=== PATIENT | female | born 1960 | race African-American/Black ===

== ENCOUNTER 2018-10-17 11:52 | Observation (INO) ==
[2018-10-17] MEDS ORDERED: SODIUM CHLORIDE 0.9% 1,000 ML IV STA (12:49)
[2018-10-17 13:23] LABS: Basophils % 0.2 % (0.0-0.8); Eosinophils % 0.2 % (0.00-10.9); Hematocrit 31.2 VOL% (35.7-47.0); Hemoglobin 10.3 GM/DL (12.0-16.0); Immature Granulocytes % 0.5 %; Immature Granulocytes Absolute 0.02 #; Lymphocytes # 0.2 10*3/uL (1.4-4.0); Lymphocytes % 4.6 % (21.3-54.2); Mean Corpuscular Volume 70.1 FL (87-102); Monocytes % 8.4 % (1.7-12.7); Neutrophils % 86.1 % (38.7-73.9); Platelet Count 244 T/CUMM (130-400); Red Blood Count 4.45 MC/CUMM (3.8-5.5); Red Cell Distribution Width 17.2 % (9.3-17.3); White Blood Count 4.4 T/CUMM (4-12)
[2018-10-17 13:26] LABS: Apearance,Urine CLOUDY (Clear); Bacteria,Urine Occasional /HPF (Few); Blood, Urine Negative (Negative); Glucose,Urine (UA) 50 mg/dL (Negative); Ketones,Urine 80 mg/dL (Negative); Mucus,Urine Many /LPF (Occasional); Nitrite,Urine Negative (Negative); Protein,Urine 100 MG/DL; RBC,Urine 3 /HPF (0-4); Squamous Epithelial Cell,Urine Occasional /HPF (0-10); Urine Specific Gravity 1.024 (1.001-1.035); WBC,Urine 7 /HPF (0-6)
[2018-10-17 13:27] LABS: Bilirubin,Urine Small mg/dL (Negative); Urine Color Yellow (Yellow)
[2018-10-17 13:45] LABS: Albumin 4.2 G/DL (3.4-5.0); Bilirubin,Total 0.5 MG/DL (0.2-1.0); Calcium 9.8 MG/DL (8.5-10.1); Osmolality,Calculated 260.5 MOS/KG (273-304); Total Protein 8.3 G/DL (6.4-8.3)
[2018-10-17 13:50] LABS: Band Neutrophils 1 % (0-10); Lymphocytes 3 % (20-55); Segmented Neutrophils 87 % (50-85); Total Cells Counted 100
[2018-10-17 13:51] LABS: Hypochromasia 1+; Target Cells Few
[2018-10-17 13:52] LABS: Platelet Estimate Adequate
[2018-10-17] MEDS ORDERED: ONDANSETRON 4 MG/2 ML VIAL IV STA (13:52)
[2018-10-17] MEDS ORDERED: DOCUSATE SODIUM 100 MG CAPSULE PO PRN (15:45)
[2018-10-17] MEDS ORDERED: ACETAMINOPHEN 325 MG TABLET PO PRN (15:45)
[2018-10-17] MEDS ORDERED: PROMETHAZINE 25 MG TABLET PO PRN (15:45)
[2018-10-17] MEDS ORDERED: ONDANSETRON 4 MG/2 ML VIAL IV PRN (15:45)
[2018-10-17] MEDS: SODIUM CHLORIDE 0.9% 1,000 ML IV SCH (20:22)
[2018-10-17] MEDS: ENOXAPARIN 40 MG/0.4 ML SYRINGE SUBCUT SCH (20:23)
[2018-10-17] MEDS: METOPROLOL SUCCINATE XL 50 MG TABLET PO SCH (20:23)
[2018-10-18] MEDS: SODIUM CHLORIDE 0.9% 1,000 ML IV SCH ×2 (04:45→19:55)
[2018-10-18 06:00] LABS: Basophils % 0.6 % (0.0-0.8); Eosinophils % 1.2 % (0.00-10.9); Hemoglobin 8.5 GM/DL (12.0-16.0); Immature Granulocytes % 0.3 %; Immature Granulocytes Absolute 0.01 #; Lymphocytes # 0.5 10*3/uL (1.4-4.0); Lymphocytes % 14.2 % (21.3-54.2); Mean Corpuscular Volume 70.6 FL (87-102); Mean Platelet Volume 9.5 FL (9.6-12.0); Monocytes % 12.1 % (1.7-12.7); Neutrophils % 71.6 % (38.7-73.9); Platelet Count 206 T/CUMM (130-400); Red Blood Count 3.54 MC/CUMM (3.8-5.5); Red Cell Distribution Width 17.4 % (9.3-17.3); White Blood Count 3.3 T/CUMM (4-12)
[2018-10-18] MEDS: LEVOTHYROXINE 100 MCG TABLET PO SCH (06:05)
[2018-10-18 06:21] LABS: Calcium 8.4 MG/DL (8.5-10.1); Osmolality,Calculated 269.8 MOS/KG (273-304)
[2018-10-18] MEDS ORDERED: POTASSIUM CHLORIDE 20 MEQ TABLET PO PRN (10:07)
[2018-10-18] MEDS ORDERED: POTASSIUM CHLORIDE RIDER 10 MEQ in PREMIX 1 EACH IV PRN (11:17)
[2018-10-18] MEDS: POTASSIUM CHLORIDE RIDER 20 MEQ in PREMIX 1 EACH IV PRN ×2 (11:37→13:54)
[2018-10-18] MEDS: ENOXAPARIN 40 MG/0.4 ML SYRINGE SUBCUT SCH (21:52)
[2018-10-18] MEDS: METOPROLOL SUCCINATE XL 50 MG TABLET PO SCH (21:52)
[2018-10-19] MEDS: SODIUM CHLORIDE 0.9% 1,000 ML IV SCH (05:20)
[2018-10-19 05:43] LABS: Basophils % 0.4 % (0.0-0.8); Eosinophils % 1.3 % (0.00-10.9); Hematocrit 25.5 VOL% (35.7-47.0); Hemoglobin 8.1 GM/DL (12.0-16.0); Immature Granulocytes % 0.4 %; Immature Granulocytes Absolute 0.01 #; Lymphocytes # 0.4 10*3/uL (1.4-4.0); Lymphocytes % 19.6 % (21.3-54.2); Mean Corpuscular HGB Conc 31.8 GM/DL (32-36); Mean Corpuscular Volume 73.7 FL (87-102); Mean Platelet Volume 10.1 FL (9.6-12.0); Monocytes % 13.8 % (1.7-12.7); Neutrophils % 64.5 % (38.7-73.9); Platelet Count 188 T/CUMM (130-400); Red Blood Count 3.46 MC/CUMM (3.8-5.5); Red Cell Distribution Width 18.3 % (9.3-17.3); White Blood Count 2.3 T/CUMM (4-12)
[2018-10-19 06:01] LABS: Calcium 8.2 MG/DL (8.5-10.1); Osmolality,Calculated 272.5 MOS/KG (273-304)
[2018-10-19] MEDS: LEVOTHYROXINE 100 MCG TABLET PO SCH (06:30)
[2018-10-19 09:14] VITALS: BP 176/103
[2018-10-19] MEDS ORDERED: amLODIPine 10 MG TABLET PO SCH (10:00)
[2018-10-19] MEDS ORDERED: HEPARIN LOCK FLUSH 500 UNIT/5 ML SYRINGE IV ONE (13:16)
== END 2018-10-19 13:40 | disposition home or self-care (01) ==
LOC: N.ED 11:52 → N.EDINP 11:52 → N.4E 17:55
PROVIDERS: ADMIT Internal Medicine; ATTEND Internal Medicine

== ENCOUNTER 2018-11-03 19:32 | Inpatient (IN) ==
[2018-11-03 22:33] LABS: Basophils % 0.2 % (0.0-0.8); Hematocrit 34.7 VOL% (35.7-47.0); Hemoglobin 11.7 GM/DL (12.0-16.0); Immature Granulocytes % 0.6 %; Immature Granulocytes Absolute 0.03 #; Lymphocytes # 0.4 10*3/uL (1.4-4.0); Lymphocytes % 7.9 % (21.3-54.2); Mean Corpuscular HGB Conc 33.7 GM/DL (32-36); Mean Corpuscular Volume 71.4 FL (87-102); Mean Platelet Volume 10.6 FL (9.6-12.0); Monocytes % 6.3 % (1.7-12.7); NRBC # 0.02 10*3/uL; Platelet Count 316 T/CUMM (130-400); Red Blood Count 4.86 MC/CUMM (3.8-5.5); White Blood Count 5.1 T/CUMM (4-12)
[2018-11-03 22:56] LABS: Alanine Aminotransferase 26 U/L (13-56); Albumin 4.3 G/DL (3.4-5.0); Alkaline Phosphatase 66 U/L (45-117); Aspartate Amino Transferase 32 U/L (0-37); Blood Urea Nitrogen 31 MG/DL (7-18); Calcium 10.1 MG/DL (8.5-10.1); Estimated Glom Filtration Rate 36 ML/MIN; Glucose 118 MG/DL (74-106); Total Protein 8.5 G/DL (6.4-8.3)
[2018-11-03 23:00] LABS: Troponin I 0.217 NG/ML (0.00-0.045)
[2018-11-03] MEDS ORDERED: SODIUM CHLORIDE 0.9% 2,000 ML IV STA (23:06)
[2018-11-04] MEDS ORDERED: SODIUM CHLORIDE 0.9% 1,000 ML IV ONE (00:29)
[2018-11-04] MEDS ORDERED: hydrALAZINE 20 MG/1 ML VIAL ONE (00:40)
[2018-11-04] MEDS ORDERED: hydrALAZINE 20 MG/1 ML VIAL IV STA (00:50)
[2018-11-04] MEDS ORDERED: POTASSIUM CHLORIDE RIDER 20 MEQ in PREMIX 1 EACH IV PRN (00:59)
[2018-11-04] MEDS ORDERED: ONDANSETRON 4 MG/2 ML VIAL IV PRN (01:00)
[2018-11-04] MEDS ORDERED: [UNRECOGNIZED DRUG - OTHER] IV PRN (01:15)
[2018-11-04 01:23] LABS: Albumin 3.9 G/DL (3.4-5.0); Bilirubin,Total 0.9 MG/DL (0.2-1.0); Calcium 9.2 MG/DL (8.5-10.1); Osmolality,Calculated 284.4 MOS/KG (273-304); Total Protein 7.3 G/DL (6.4-8.3)
[2018-11-04] MEDS: SODIUM CHLORIDE 0.9% 1,000 ML IV SCH ×3 (04:00→20:33)
[2018-11-04] MEDS: ENOXAPARIN 40 MG/0.4 ML SYRINGE SUBCUT SCH (04:32)
[2018-11-04] MEDS: POTASSIUM CHLORIDE RIDER 10 MEQ in PREMIX 1 EACH IV PRN ×5 (04:33→08:51)
[2018-11-04] MEDS: LEVOTHYROXINE 100 MCG TABLET PO SCH (05:35)
[2018-11-04 06:14] LABS: Basophils % 0.2 % (0.0-0.8); Hematocrit 35.4 VOL% (35.7-47.0); Hemoglobin 11.5 GM/DL (12.0-16.0); Immature Granulocytes % 0.6 %; Immature Granulocytes Absolute 0.04 #; Lymphocytes # 0.5 10*3/uL (1.4-4.0); Lymphocytes % 7.3 % (21.3-54.2); Mean Corpuscular HGB Conc 32.5 GM/DL (32-36); Mean Corpuscular Volume 72.8 FL (87-102); Monocytes % 7.9 % (1.7-12.7); Platelet Count 259 T/CUMM (130-400); Red Blood Count 4.86 MC/CUMM (3.8-5.5); White Blood Count 6.6 T/CUMM (4-12)
[2018-11-04 06:53] LABS: Platelet Estimate Normal
[2018-11-04 06:54] LABS: Ovalocytes 1+
[2018-11-04 06:55] LABS: Anisocytosis 2+; Burr Cells 1+; Poikilocytosis 2+
[2018-11-04] MEDS ORDERED: amLODIPine 10 MG TABLET PO SCH (09:00)
[2018-11-04] MEDS ORDERED: VANCOMYCIN INJ 1,000 MG in SODIUM CHLORIDE 0.9% 250 ML IV ONE (09:16)
[2018-11-04 11:40] LABS: Barbiturates Screen,Urine Negative (Negative); Benzodiazepines Screen,Urine Negative (Negative); Cannabinoid Screen,Urine Negative (Negative); Opiate Screen,Urine Negative (Negative); Phencyclidine Screen,Urine Negative (Negative)
[2018-11-04 11:41] LABS: Apearance,Urine CLEAR (Clear); Bilirubin,Urine Negative (Negative); Blood, Urine Negative (Negative); Glucose,Urine (UA) Negative (Negative); Ketones,Urine 20 mg/dL (Negative); Mucus,Urine Occasional /LPF (Occasional); Nitrite,Urine Negative (Negative); Protein,Urine Negative; RBC,Urine 1 /HPF (0-4); Urine Color Yellow (Yellow); Urine Specific Gravity 1.011 (1.001-1.035); Urine Urobilinogen < 2.0 EU/DL (0.2-1.0)
[2018-11-04] MEDS ORDERED: POTASSIUM CHLORIDE 20 MEQ/15 ML UDCUP PO ONE (12:12)
[2018-11-04] MEDS: MEROPENEM 500 MG in SODIUM CHLORIDE 0.9% 100 ML IV SCH ×2 (13:27→20:31)
[2018-11-04] MEDS: diphenhydrAMINE CAP 50 MG CAPSULE PO SCH ×3 (13:27→23:56)
[2018-11-04] MEDS: POTASSIUM CHLORIDE RIDER 10 MEQ in PREMIX 1 EACH IV SCH (13:33)
[2018-11-04] MEDS ORDERED: amLODIPine 5 MG TABLET PO SCH (15:56)
[2018-11-04] MEDS: PANTOPRAZOLE 40 MG TABLET PO SCH (16:57)
[2018-11-04] MEDS: METOPROLOL SUCCINATE XL 50 MG TABLET PO SCH (20:30)
[2018-11-05] MEDS: ENOXAPARIN 40 MG/0.4 ML SYRINGE SUBCUT SCH (00:14)
[2018-11-05 03:25] LABS: Basophils % 0.2 % (0.0-0.8); Hemoglobin 11.5 GM/DL (12.0-16.0); Immature Granulocytes % 0.5 %; Immature Granulocytes Absolute 0.02 #; Lymphocytes # 0.5 10*3/uL (1.4-4.0); Lymphocytes % 11.2 % (21.3-54.2); Mean Corpuscular HGB Conc 32.9 GM/DL (32-36); Mean Corpuscular Volume 72.5 FL (87-102); Monocytes % 10.5 % (1.7-12.7); NRBC # 0.03 10*3/uL; Neutrophils % 77.6 % (38.7-73.9); Platelet Count 317 T/CUMM (130-400); Red Blood Count 4.83 MC/CUMM (3.8-5.5); Red Cell Distribution Width 19.1 % (9.3-17.3); White Blood Count 4.2 T/CUMM (4-12)
[2018-11-05 03:51] LABS: Calcium 8.2 MG/DL (8.5-10.1); Osmolality,Calculated 270.1 MOS/KG (273-304)
[2018-11-05] MEDS: SODIUM CHLORIDE 0.9% 1,000 ML IV SCH ×3 (03:52→23:38)
[2018-11-05] MEDS: POTASSIUM CHLORIDE RIDER 10 MEQ in PREMIX 1 EACH IV PRN ×2 (04:46→05:59)
[2018-11-05] MEDS: diphenhydrAMINE CAP 50 MG CAPSULE PO SCH ×3 (05:58→17:33)
[2018-11-05] MEDS: LEVOTHYROXINE 100 MCG TABLET PO SCH (05:58)
[2018-11-05] MEDS ORDERED: hydrALAZINE 20 MG/1 ML VIAL IV PRN (07:44)
[2018-11-05] MEDS: MEROPENEM 500 MG in SODIUM CHLORIDE 0.9% 100 ML IV SCH (08:48)
[2018-11-05] MEDS: amLODIPine 10 MG TABLET PO SCH (08:49)
[2018-11-05] MEDS: PANTOPRAZOLE 40 MG TABLET PO SCH (08:49)
[2018-11-05] MEDS: POTASSIUM CHLORIDE RIDER 20 MEQ in PREMIX 1 EACH IV PRN ×2 (10:09→17:33)
[2018-11-05] MEDS ORDERED: DIAZEPAM 10 MG/2 ML SYRINGE IV ONE (10:36)
[2018-11-05] MEDS ORDERED: DIAZEPAM 10 MG/2 ML SYRINGE ONE (10:39)
[2018-11-05 10:55] LABS: Albumin 3.3 G/DL (3.4-5.0); Calcium 8.3 MG/DL (8.5-10.1); Osmolality,Calculated 264.5 MOS/KG (273-304); Total Protein 7.1 G/DL (6.4-8.3)
[2018-11-05] MEDS: METOPROLOL SUCCINATE XL 50 MG TABLET PO SCH (21:11)
[2018-11-06] MEDS: ENOXAPARIN 40 MG/0.4 ML SYRINGE SUBCUT SCH (00:49)
[2018-11-06] MEDS: POTASSIUM CHLORIDE RIDER 10 MEQ in PREMIX 1 EACH IV PRN ×3 (00:49→04:00)
[2018-11-06] MEDS: diphenhydrAMINE CAP 50 MG CAPSULE PO SCH ×4 (00:49→19:10)
[2018-11-06 05:39] LABS: Basophils % 0.2 % (0.0-0.8); Hematocrit 30.4 VOL% (35.7-47.0); Hemoglobin 10.1 GM/DL (12.0-16.0); Immature Granulocytes % 0.7 %; Immature Granulocytes Absolute 0.04 #; Lymphocytes # 0.7 10*3/uL (1.4-4.0); Lymphocytes % 12.1 % (21.3-54.2); Mean Corpuscular HGB Conc 33.2 GM/DL (32-36); Mean Corpuscular Volume 71.9 FL (87-102); Mean Platelet Volume 10.2 FL (9.6-12.0); Monocytes % 7.2 % (1.7-12.7); NRBC # 0.06 10*3/uL; Neutrophils % 79.8 % (38.7-73.9); Platelet Count 300 T/CUMM (130-400); Red Blood Count 4.23 MC/CUMM (3.8-5.5); Red Cell Distribution Width 18.8 % (9.3-17.3); White Blood Count 5.5 T/CUMM (4-12)
[2018-11-06] MEDS: LEVOTHYROXINE 100 MCG TABLET PO SCH (06:14)
[2018-11-06 06:17] LABS: Calcium 8.4 MG/DL (8.5-10.1); Osmolality,Calculated 271.1 MOS/KG (273-304)
[2018-11-06] MEDS: PANTOPRAZOLE 40 MG TABLET PO SCH (08:55)
[2018-11-06] MEDS: amLODIPine 10 MG TABLET PO SCH (08:55)
[2018-11-06] MEDS: SODIUM CHLORIDE 0.9% 1,000 ML IV SCH ×3 (13:58→20:26)
[2018-11-06] MEDS: METOPROLOL SUCCINATE XL 50 MG TABLET PO SCH (20:23)
[2018-11-07] MEDS: diphenhydrAMINE CAP 50 MG CAPSULE PO SCH ×2 (00:34→05:31)
[2018-11-07] MEDS: ENOXAPARIN 40 MG/0.4 ML SYRINGE SUBCUT SCH (00:35)
[2018-11-07] MEDS: SODIUM CHLORIDE 0.9% 1,000 ML IV SCH ×3 (04:30→22:17)
[2018-11-07] MEDS: LEVOTHYROXINE 100 MCG TABLET PO SCH (05:31)
[2018-11-07 08:10] LABS: Eosinophils % 0.4 % (0.00-10.9); Hematocrit 25.6 VOL% (35.7-47.0); Hemoglobin 8.6 GM/DL (12.0-16.0); Immature Granulocytes % 0.4 %; Immature Granulocytes Absolute 0.02 #; Lymphocytes # 0.4 10*3/uL (1.4-4.0); Lymphocytes % 7.7 % (21.3-54.2); Mean Corpuscular HGB Conc 33.6 GM/DL (32-36); Mean Corpuscular Volume 71.3 FL (87-102); Mean Platelet Volume 11.9 FL (9.6-12.0); Monocytes % 5.8 % (1.7-12.7); NRBC # 0.05 10*3/uL; Neutrophils % 85.7 % (38.7-73.9); Platelet Count 269 T/CUMM (130-400); Red Blood Count 3.59 MC/CUMM (3.8-5.5); Red Cell Distribution Width 18.6 % (9.3-17.3); White Blood Count 4.8 T/CUMM (4-12)
[2018-11-07 08:27] LABS: Calcium 7.7 MG/DL (8.5-10.1); Osmolality,Calculated 265.4 MOS/KG (273-304)
[2018-11-07] MEDS: amLODIPine 10 MG TABLET PO SCH (10:53)
[2018-11-07] MEDS: PANTOPRAZOLE 40 MG TABLET PO SCH (10:53)
[2018-11-07] MEDS: METOPROLOL SUCCINATE XL 50 MG TABLET PO SCH (22:17)
[2018-11-07] MEDS: POTASSIUM CHLORIDE RIDER 10 MEQ in PREMIX 1 EACH IV PRN (22:18)
[2018-11-08] MEDS: POTASSIUM CHLORIDE RIDER 10 MEQ in PREMIX 1 EACH IV PRN ×7 (01:00→22:14)
[2018-11-08] MEDS: ENOXAPARIN 40 MG/0.4 ML SYRINGE SUBCUT SCH (02:04)
[2018-11-08] MEDS: LEVOTHYROXINE 100 MCG TABLET PO SCH (06:27)
[2018-11-08] MEDS: amLODIPine 10 MG TABLET PO SCH (09:08)
[2018-11-08] MEDS: PANTOPRAZOLE 40 MG TABLET PO SCH (09:08)
[2018-11-08] MEDS: SODIUM CHLORIDE 0.9% 1,000 ML IV SCH ×2 (10:40→18:15)
[2018-11-08 14:32] LABS: PT Patient Result 10.6 SECS (9.6-12.2)
[2018-11-08] MEDS: METOPROLOL SUCCINATE XL 50 MG TABLET PO SCH (21:11)
[2018-11-09] MEDS: POTASSIUM CHLORIDE RIDER 10 MEQ in PREMIX 1 EACH IV PRN ×2 (00:03→18:30)
[2018-11-09] MEDS: ENOXAPARIN 40 MG/0.4 ML SYRINGE SUBCUT SCH (04:20)
[2018-11-09] MEDS: SODIUM CHLORIDE 0.9% 1,000 ML IV SCH (04:35)
[2018-11-09 05:23] LABS: Basophils % 0.3 % (0.0-0.8); Eosinophils # 0.1 10*3/uL (0.0-0.87); Eosinophils % 1.8 % (0.00-10.9); Hematocrit 21.8 VOL% (35.7-47.0); Hemoglobin 7.7 GM/DL (12.0-16.0); Immature Granulocytes % 0.3 %; Immature Granulocytes Absolute 0.01 #; Lymphocytes # 0.2 10*3/uL (1.4-4.0); Lymphocytes % 6.3 % (21.3-54.2); Mean Corpuscular HGB Conc 35.3 GM/DL (32-36); Mean Corpuscular Volume 70.1 FL (87-102); Mean Platelet Volume 9.3 FL (9.6-12.0); Monocytes % 4.5 % (1.7-12.7); NRBC # 0.02 10*3/uL; Neutrophils % 86.8 % (38.7-73.9); Platelet Count 176 T/CUMM (130-400); Red Blood Count 3.11 MC/CUMM (3.8-5.5); Red Cell Distribution Width 17.3 % (9.3-17.3); White Blood Count 3.3 T/CUMM (4-12)
[2018-11-09 05:42] LABS: Calcium 7.7 MG/DL (8.5-10.1); Osmolality,Calculated 254.1 MOS/KG (273-304)
[2018-11-09] MEDS: LEVOTHYROXINE 100 MCG TABLET PO SCH (05:55)
[2018-11-09] MEDS: amLODIPine 10 MG TABLET PO SCH (09:59)
[2018-11-09] MEDS: PANTOPRAZOLE 40 MG TABLET PO SCH (10:00)
[2018-11-09 10:10] LABS: Appearance,CSF Hazy; Neutrophils,CSF 100 %; Red Blood Cell,CSF 6834 C/CUMM; White Blood Cell,CSF 18 C/CUMM
[2018-11-09 10:12] LABS: Glucose,CSF 62 MG/DL (40-70)
[2018-11-09] MEDS: POTASSIUM CHLORIDE RIDER 20 MEQ in PREMIX 1 EACH IV PRN ×2 (11:00→14:00)
[2018-11-09] MEDS ORDERED: SODIUM CHLORIDE 0.9% 1,000 ML IV PRN (12:39)
[2018-11-09 16:39] LABS: Basophils % 0.3 % (0.0-0.8); Eosinophils % 0.8 % (0.00-10.9); Hematocrit 23.3 VOL% (35.7-47.0); Hemoglobin 8.1 GM/DL (12.0-16.0); Immature Granulocytes % 0.3 %; Immature Granulocytes Absolute 0.01 #; Lymphocytes # 0.2 10*3/uL (1.4-4.0); Lymphocytes % 4.1 % (21.3-54.2); Mean Corpuscular HGB Conc 34.8 GM/DL (32-36); Mean Corpuscular Volume 69.1 FL (87-102); NRBC # 0.04 10*3/uL; Neutrophils % 91.5 % (38.7-73.9); Platelet Count 201 T/CUMM (130-400); Red Blood Count 3.37 MC/CUMM (3.8-5.5); Red Cell Distribution Width 17.4 % (9.3-17.3)
[2018-11-09 17:16] LABS: Eosinophils 1 % (0-10); Lymphocytes 3 % (20-55); Segmented Neutrophils 96 % (50-85); Total Cells Counted 100
[2018-11-09 17:17] LABS: Anisocytosis 2+; Elliptocytes 2+; Microcytosis 2+; Platelet Estimate Normal
[2018-11-09 17:18] LABS: Poikilocytosis 2+
[2018-11-09 17:19] LABS: Burr Cells Few
[2018-11-09 20:06] LABS: Hematocrit 29.4 VOL% (35.7-47.0)
[2018-11-09 20:07] LABS: Hemoglobin 10.4 GM/DL (12.0-16.0)
[2018-11-09] MEDS: METOPROLOL SUCCINATE XL 50 MG TABLET PO SCH (21:23)
[2018-11-10] MEDS: ENOXAPARIN 40 MG/0.4 ML SYRINGE SUBCUT SCH (00:58)
[2018-11-10] MEDS: SODIUM CHLORIDE 0.9% 1,000 ML IV SCH ×4 (01:00→20:20)
[2018-11-10 06:35] LABS: Basophils % 0.4 % (0.0-0.8); Eosinophils % 1.2 % (0.00-10.9); Hematocrit 26.7 VOL% (35.7-47.0); Hemoglobin 9.5 GM/DL (12.0-16.0); Lymphocytes % 1.2 % (21.3-54.2); Mean Corpuscular HGB Conc 35.6 GM/DL (32-36); Mean Corpuscular Volume 73.2 FL (87-102); Monocytes % 4.4 % (1.7-12.7); NRBC # 0.04 10*3/uL; Neutrophils % 92.8 % (38.7-73.9); Red Blood Count 3.65 MC/CUMM (3.8-5.5); Red Cell Distribution Width 18.3 % (9.3-17.3); White Blood Count 2.5 T/CUMM (4-12)
[2018-11-10 06:48] LABS: Platelet Count 149 T/CUMM (130-400)
[2018-11-10 06:57] LABS: Band Neutrophils 9 % (0-10); Eosinophils 2 % (0-10); Hypochromasia 1+; Lymphocytes 2 % (20-55); Nucleated Red Blood Cells 2 (0-5); Segmented Neutrophils 86 % (50-85); Total Cells Counted 100
[2018-11-10 06:58] LABS: Acanthocytes Few; Elliptocytes 1+; Microcytosis 1+; Poikilocytosis 1+; Target Cells Slight
[2018-11-10 06:59] LABS: Burr Cells Slight; Platelet Estimate Adequate
[2018-11-10 07:16] LABS: Albumin 2.4 G/DL (3.4-5.0); Bilirubin,Total 1.4 MG/DL (0.2-1.0); Calcium 7.7 MG/DL (8.5-10.1); Osmolality,Calculated 260.8 MOS/KG (273-304); Total Protein 5.3 G/DL (6.4-8.3)
[2018-11-10] MEDS: POTASSIUM CHLORIDE RIDER 20 MEQ in PREMIX 1 EACH IV PRN (08:17)
[2018-11-10] MEDS: amLODIPine 10 MG TABLET PO SCH (08:30)
[2018-11-10] MEDS: LEVOTHYROXINE 100 MCG TABLET PO SCH (08:30)
[2018-11-10] MEDS: PANTOPRAZOLE 40 MG TABLET PO SCH (08:30)
[2018-11-10] MEDS: POTASSIUM CHLORIDE RIDER 10 MEQ in PREMIX 1 EACH IV PRN (10:30)
[2018-11-10] MEDS: DEXAMETHASONE 4 MG/1 ML VIAL IV SCH ×3 (11:23→23:54)
[2018-11-10 13:16] LABS: VDRL Spinal Fluid Negative (Negative)
[2018-11-10] MEDS: FAT EMULSION 20% 250 ML IV SCH (16:07)
[2018-11-10] MEDS ORDERED: MULTIVITAMIN INJ 10 ML in AMINO ACIDS/DEXT/LYTES 5-20% 2,000 ML IV SCH (17:00)
[2018-11-10] MEDS: METOPROLOL SUCCINATE XL 50 MG TABLET PO SCH (21:23)
[2018-11-11] MEDS: ENOXAPARIN 40 MG/0.4 ML SYRINGE SUBCUT SCH (01:43)
[2018-11-11] MEDS: DEXAMETHASONE 4 MG/1 ML VIAL IV SCH ×4 (06:07→23:42)
[2018-11-11] MEDS: LEVOTHYROXINE 100 MCG TABLET PO SCH (06:11)
[2018-11-11] MEDS: SODIUM CHLORIDE 0.9% 1,000 ML IV SCH ×3 (07:30→17:03)
[2018-11-11] MEDS: amLODIPine 10 MG TABLET PO SCH (09:12)
[2018-11-11] MEDS: PANTOPRAZOLE 40 MG TABLET PO SCH (09:12)
[2018-11-11 09:13] LABS: Calcium 7.8 MG/DL (8.5-10.1); Osmolality,Calculated 279.5 MOS/KG (273-304)
[2018-11-11 09:44] LABS: Basophils % 0.3 % (0.0-0.8); Hemoglobin 8.5 GM/DL (12.0-16.0); Immature Granulocytes % 0.6 %; Immature Granulocytes Absolute 0.02 #; Lymphocytes # 0.1 10*3/uL (1.4-4.0); Lymphocytes % 4.5 % (21.3-54.2); Mean Corpuscular Volume 75.3 FL (87-102); Monocytes % 4.8 % (1.7-12.7); Neutrophils % 89.8 % (38.7-73.9); Red Blood Count 3.32 MC/CUMM (3.8-5.5); Red Cell Distribution Width 18.4 % (9.3-17.3); White Blood Count 3.1 T/CUMM (4-12)
[2018-11-11 09:47] LABS: Platelet Count 91 T/CUMM (130-400)
[2018-11-11 10:07] LABS: Band Neutrophils 4 % (0-10); Lymphocytes 1 % (20-55); Nucleated Red Blood Cells 1 (0-5); Segmented Neutrophils 92 % (50-85); Total Cells Counted 100
[2018-11-11 10:08] LABS: Hypochromasia 1+
[2018-11-11 10:09] LABS: Acanthocytes Few; Elliptocytes 1+; Microcytosis 1+
[2018-11-11 10:10] LABS: Poikilocytosis 1+
[2018-11-11 10:18] LABS: Anisocytosis 1+; Platelet Estimate Decreased
[2018-11-11] MEDS: POTASSIUM CHLORIDE RIDER 20 MEQ in PREMIX 1 EACH IV PRN (17:00)
[2018-11-11] MEDS: FAT EMULSION 20% 250 ML IV SCH (17:02)
[2018-11-11] MEDS: MULTIVITAMIN INJ 10 ML in AMINO ACIDS/DEXT/LYTES 5-20% 2,000 ML IV SCH (17:02)
[2018-11-11] MEDS: METOPROLOL SUCCINATE XL 50 MG TABLET PO SCH (21:00)
[2018-11-12] MEDS: ENOXAPARIN 40 MG/0.4 ML SYRINGE SUBCUT SCH (01:10)
[2018-11-12] MEDS: SODIUM CHLORIDE 0.9% 1,000 ML IV SCH ×3 (01:22→16:56)
[2018-11-12 02:19] LABS: Hematocrit 20.5 VOL% (35.7-47.0); Hemoglobin 7.2 GM/DL (12.0-16.0); Immature Granulocytes % 1.1 %; Immature Granulocytes Absolute 0.05 #; Lymphocytes # 0.2 10*3/uL (1.4-4.0); Lymphocytes % 5.2 % (21.3-54.2); Mean Corpuscular HGB Conc 35.1 GM/DL (32-36); Mean Corpuscular Volume 74.8 FL (87-102); Monocytes % 4.3 % (1.7-12.7); NRBC # 0.03 10*3/uL; Neutrophils % 89.4 % (38.7-73.9); Red Blood Count 2.74 MC/CUMM (3.8-5.5); Red Cell Distribution Width 18.9 % (9.3-17.3); White Blood Count 4.5 T/CUMM (4-12)
[2018-11-12 02:26] LABS: Platelet Count 61 T/CUMM (130-400)
[2018-11-12 02:36] LABS: Calcium 7.9 MG/DL (8.5-10.1); Osmolality,Calculated 287.1 MOS/KG (273-304); Prealbumin 11.8 MG/DL (20-40)
[2018-11-12 03:07] LABS: Band Neutrophils 4 % (0-10); Lymphocytes 5 % (20-55); Segmented Neutrophils 88 % (50-85)
[2018-11-12 03:08] LABS: Elliptocytes 2+; Platelet Estimate Decreased
[2018-11-12 03:09] LABS: Schistocytes Few
[2018-11-12 03:14] LABS: Acanthocytes 1+; Target Cells Few
[2018-11-12 03:15] LABS: Anisocytosis 1+; Hypochromasia Slight; Microcytosis 1+
[2018-11-12 03:16] LABS: Burr Cells 2+; Poikilocytosis 3+
[2018-11-12 03:17] LABS: Total Cells Counted 100
[2018-11-12] MEDS: DEXAMETHASONE 4 MG/1 ML VIAL IV SCH ×3 (05:37→16:56)
[2018-11-12] MEDS: LEVOTHYROXINE 100 MCG TABLET PO SCH (05:40)
[2018-11-12] MEDS ORDERED: SODIUM CHLORIDE 0.9% 1,000 ML IV PRN (08:35)
[2018-11-12] MEDS: PANTOPRAZOLE 40 MG TABLET PO SCH (09:29)
[2018-11-12] MEDS: amLODIPine 10 MG TABLET PO SCH (09:29)
[2018-11-12] MEDS ORDERED: MAGNESIUM SULF RIDER 4 GM in PREMIX 1 EACH IV PRN (09:35)
[2018-11-12] MEDS: MAGNESIUM SULF RIDER 2 GM in PREMIX 1 EACH IV PRN (13:18)
[2018-11-12 13:21] LABS: West Nile Virus Ab, IgG, CSF Negative (Negative); West Nile Virus Ab, IgM, CSF Negative (Negative)
[2018-11-12] MEDS ORDERED: POTASSIUM PHOSPHATE 15 MMOL in SODIUM CHLORIDE 0.9% 100 ML IV ONE (13:37)
[2018-11-12] MEDS: FAT EMULSION 20% 250 ML IV SCH (14:50)
[2018-11-12 15:51] LABS: M. Tuberculosis PCR Result Negative (Negative); M. Tuberculosis PCR Source CSF
[2018-11-12] MEDS: MULTIVITAMIN INJ 10 ML in AMINO ACIDS/DEXT/LYTES 5-20% 2,000 ML IV SCH (16:56)
[2018-11-12] MEDS: METOPROLOL SUCCINATE XL 50 MG TABLET PO SCH (20:36)
[2018-11-13] MEDS: ENOXAPARIN 40 MG/0.4 ML SYRINGE SUBCUT SCH (00:33)
[2018-11-13] MEDS: DEXAMETHASONE 4 MG/1 ML VIAL IV SCH ×5 (00:33→22:30)
[2018-11-13] MEDS: SODIUM CHLORIDE 0.9% 1,000 ML IV SCH (04:53)
[2018-11-13] MEDS: LEVOTHYROXINE 100 MCG TABLET PO SCH (05:54)
[2018-11-13 06:03] LABS: Basophils # 0.1 10*3/uL (0.0-0.2); Basophils % 0.6 % (0.0-0.8); Immature Granulocytes % 1.3 %; Immature Granulocytes Absolute 0.17 #; Lymphocytes # 0.4 10*3/uL (1.4-4.0); Mean Corpuscular HGB Conc 35.2 GM/DL (32-36); Mean Corpuscular Volume 77.3 FL (87-102); Monocytes % 4.3 % (1.7-12.7); NRBC # 0.07 10*3/uL; Neutrophils % 90.8 % (38.7-73.9); Red Cell Distribution Width 17.5 % (9.3-17.3)
[2018-11-13 06:04] LABS: Hemoglobin 11.6 GM/DL (12.0-16.0); Platelet Count 50 T/CUMM (130-400); Red Blood Count 4.27 MC/CUMM (3.8-5.5); White Blood Count 12.7 T/CUMM (4-12)
[2018-11-13 06:05] LABS: INR 0.9; PT Patient Result 9.5 SECS (9.6-12.2); Partial Thromboplastin Time 29.5 SECS (20.8-36.0)
[2018-11-13 06:21] LABS: Albumin 2.6 G/DL (3.4-5.0); Bilirubin,Total 0.8 MG/DL (0.2-1.0); Calcium 8.1 MG/DL (8.5-10.1); Osmolality,Calculated 283.1 MOS/KG (273-304); Total Protein 5.6 G/DL (6.4-8.3)
[2018-11-13 06:26] LABS: Band Neutrophils 1 % (0-10); Elliptocytes Few; Hypochromasia 1+; Lymphocytes 1 % (20-55); Microcytosis 1+; Platelet Estimate Decreased; Segmented Neutrophils 97 % (50-85); Total Cells Counted 100
[2018-11-13 06:37] LABS: Calcium 7.9 MG/DL (8.5-10.1); Osmolality,Calculated 283.1 MOS/KG (273-304)
[2018-11-13] MEDS: POTASSIUM CHLORIDE RIDER 10 MEQ in PREMIX 1 EACH IV PRN ×5 (06:42→22:32)
[2018-11-13 09:24] LABS: Albumin 2.6 G/DL (3.4-5.0); Bilirubin,Total 0.6 MG/DL (0.2-1.0); Calcium 8.1 MG/DL (8.5-10.1); Osmolality,Calculated 282.3 MOS/KG (273-304); Total Protein 5.7 G/DL (6.4-8.3)
[2018-11-13] MEDS: amLODIPine 10 MG TABLET PO SCH (10:15)
[2018-11-13] MEDS: PANTOPRAZOLE 40 MG TABLET PO SCH (10:15)
[2018-11-13] MEDS ORDERED: POTASSIUM PHOSPHATE 15 MMOL in SODIUM CHLORIDE 0.9% 100 ML IV ONE (12:34)
[2018-11-13] MEDS: FAT EMULSION 20% 250 ML IV SCH (15:53)
[2018-11-13] MEDS: MULTIVITAMIN INJ 10 ML in AMINO ACIDS/DEXT/LYTES 5-20% 2,000 ML IV SCH (17:50)
[2018-11-14] MEDS: SODIUM CHLORIDE 0.9% 1,000 ML IV SCH ×2 (01:11→14:45)
[2018-11-14 04:46] LABS: Glucose,CSF 103 MG/DL (40-70)
[2018-11-14 05:11] LABS: Appearance,CSF Hazy; Lymphocytes,CSF 88 %; Monocytes,CSF 13 %; Red Blood Cell,CSF 4643 C/CUMM; White Blood Cell,CSF 9 C/CUMM
[2018-11-14 05:42] LABS: Basophils # 0.1 10*3/uL (0.0-0.2); Basophils % 0.5 % (0.0-0.8); Eosinophils % 0.1 % (0.00-10.9); Hematocrit 29.2 VOL% (35.7-47.0); Hemoglobin 10.5 GM/DL (12.0-16.0); Immature Granulocytes % 4.1 %; Immature Granulocytes Absolute 0.79 #; Lymphocytes # 0.7 10*3/uL (1.4-4.0); Lymphocytes % 3.4 % (21.3-54.2); Mean Corpuscular Volume 76.4 FL (87-102); Monocytes % 5.1 % (1.7-12.7); NRBC # 0.09 10*3/uL; Neutrophils % 86.8 % (38.7-73.9); Platelet Count 48 T/CUMM (130-400); Red Blood Count 3.82 MC/CUMM (3.8-5.5); Red Cell Distribution Width 17.7 % (9.3-17.3); White Blood Count 19.1 T/CUMM (4-12)
[2018-11-14 06:03] LABS: Hypochromasia 1+; Lymphocytes 4 % (20-55); Microcytosis 1+; Nucleated Red Blood Cells 1 (0-5); Ovalocytes Slight; Platelet Estimate Decreased; Segmented Neutrophils 91 % (50-85); Total Cells Counted 100
[2018-11-14 06:12] LABS: Calcium 8.1 MG/DL (8.5-10.1); Osmolality,Calculated 283.3 MOS/KG (273-304)
[2018-11-14] MEDS: DEXAMETHASONE 4 MG/1 ML VIAL IV SCH (06:23)
[2018-11-14] MEDS: LEVOTHYROXINE 100 MCG TABLET PO SCH (06:28)
[2018-11-14] MEDS: PANTOPRAZOLE 40 MG TABLET PO SCH (08:46)
[2018-11-14] MEDS: amLODIPine 10 MG TABLET PO SCH (08:46)
[2018-11-14] MEDS ORDERED: POTASSIUM PHOSPHATE 15 MMOL in SODIUM CHLORIDE 0.9% 100 ML IV ONE (10:15)
[2018-11-14] MEDS: MAGNESIUM SULF RIDER 2 GM in PREMIX 1 EACH IV PRN (10:30)
[2018-11-14] MEDS ORDERED: methylPREDNISolone SOD SUC 40 MG/1 ML VIAL IV ONE (13:09)
[2018-11-14] MEDS ORDERED: [UNRECOGNIZED DRUG - OTHER] IV SCH (17:00)
[2018-11-14] MEDS ORDERED: [UNRECOGNIZED DRUG - OTHER] IV SCH (17:00)
[2018-11-14] MEDS ORDERED: POTASSIUM ACETATE IV SCH (17:00)
[2018-11-14] MEDS ORDERED: MULTIVITAMIN IV SCH ×2 (17:00)
[2018-11-14] MEDS ORDERED: TRACE ELEMENTS IV SCH ×2 (17:00)
[2018-11-14] MEDS ORDERED: POTASSIUM CHLORIDE IV SCH (17:00)
[2018-11-15 05:07] LABS: Basophils % 0.1 % (0.0-0.8); Hematocrit 26.6 VOL% (35.7-47.0); Hemoglobin 9.3 GM/DL (12.0-16.0); Immature Granulocytes % 4.6 %; Immature Granulocytes Absolute 0.62 #; Lymphocytes # 0.5 10*3/uL (1.4-4.0); Lymphocytes % 3.8 % (21.3-54.2); Mean Corpuscular Volume 77.1 FL (87-102); Monocytes % 4.1 % (1.7-12.7); NRBC # 0.07 10*3/uL; Neutrophils % 87.4 % (38.7-73.9); Red Blood Count 3.45 MC/CUMM (3.8-5.5); Red Cell Distribution Width 18.2 % (9.3-17.3); White Blood Count 13.5 T/CUMM (4-12)
[2018-11-15 05:15] LABS: Platelet Count 42 T/CUMM (130-400)
[2018-11-15 05:27] LABS: Lymphocytes 2 % (20-55); Segmented Neutrophils 94 % (50-85); Total Cells Counted 100
[2018-11-15 05:28] LABS: Hypochromasia Slight; Microcytosis 1+; Ovalocytes Slight; Platelet Estimate Decreased
[2018-11-15 05:31] LABS: Calcium 7.7 MG/DL (8.5-10.1)
[2018-11-15] MEDS: LEVOTHYROXINE 100 MCG TABLET PO SCH (06:12)
[2018-11-15] MEDS: amLODIPine 10 MG TABLET PO SCH (08:00)
[2018-11-15] MEDS: PANTOPRAZOLE 40 MG TABLET PO SCH (08:46)
[2018-11-15] MEDS: POTASSIUM CHLORIDE RIDER 20 MEQ in PREMIX 1 EACH IV PRN (08:46)
[2018-11-15] MEDS: BISACODYL 5 MG TABLET PO PRN (11:00)
[2018-11-15] MEDS: POTASSIUM CHLORIDE RIDER 10 MEQ in PREMIX 1 EACH IV PRN (11:00)
[2018-11-15] MEDS ORDERED: methylPREDNISolone SOD SUC 40 MG/1 ML VIAL IV ONE (12:30)
[2018-11-15] MEDS ORDERED: FLUCONAZOLE 200 MG TABLET PO ONE (12:31)
[2018-11-15] MEDS: FAMOTIDINE 20 MG TABLET PO SCH (20:40)
[2018-11-15 23:03] LABS: HIT Interpretation Negative (Negative)
[2018-11-16 04:30] LABS: Hematocrit 28.8 VOL% (35.7-47.0); Hemoglobin 9.8 GM/DL (12.0-16.0); Immature Granulocytes % 2.2 %; Immature Granulocytes Absolute 0.13 #; Lymphocytes # 0.3 10*3/uL (1.4-4.0); Lymphocytes % 4.9 % (21.3-54.2); Mean Corpuscular Volume 78.9 FL (87-102); Monocytes % 4.4 % (1.7-12.7); NRBC # 0.03 10*3/uL; Neutrophils % 88.5 % (38.7-73.9); Platelet Count 43 T/CUMM (130-400); Red Blood Count 3.65 MC/CUMM (3.8-5.5); Red Cell Distribution Width 18.7 % (9.3-17.3)
[2018-11-16 04:41] LABS: Ferritin 682.7 ng/ml (8-252)
[2018-11-16 04:46] LABS: Free T4 (Free Thyroxine) 0.72 NG/DL (0.76-1.46); Thyroid Stimulating Hormone 4.99 uIU/ml (0.358-3.74)
[2018-11-16 04:48] LABS: Alanine Aminotransferase 61 U/L (13-56); Albumin 2.4 G/DL (3.4-5.0); Alkaline Phosphatase 63 U/L (45-117); Aspartate Amino Transferase 45 U/L (0-37); Bilirubin,Total < 0.39 MG/DL (0.2-1.0); Blood Urea Nitrogen 17 MG/DL (7-18); Estimated Glom Filtration Rate 99 ML/MIN; Glucose 105 MG/DL (74-106); Osmolality,Calculated 280.4 MOS/KG (273-304); Total Protein 5.1 G/DL (6.4-8.3)
[2018-11-16 05:09] LABS: Anisocytosis 2+; Band Neutrophils 3 % (0-10); Lymphocytes 6 % (20-55); Nucleated Red Blood Cells 1 (0-5); Platelet Estimate Decreased; Poikilocytosis 1+; Segmented Neutrophils 91 % (50-85); Total Cells Counted 100
[2018-11-16 05:10] LABS: Polychromasia Slight; Target Cells Few
[2018-11-16 05:27] LABS: HIV Antigen/Antibody Result Nonreactive (Nonreactive)
[2018-11-16] MEDS: LEVOTHYROXINE 100 MCG TABLET PO SCH (05:28)
[2018-11-16] MEDS: FAMOTIDINE 20 MG TABLET PO SCH ×2 (08:37→20:41)
[2018-11-16] MEDS ORDERED: FLUCONAZOLE 200 MG TABLET PO ONE (09:00)
[2018-11-17] MEDS: LEVOTHYROXINE 112 MCG TABLET PO SCH (05:56)
[2018-11-17 06:07] LABS: Basophils % 0.2 % (0.0-0.8); Eosinophils % 0.4 % (0.00-10.9); Hematocrit 32.8 VOL% (35.7-47.0); Hemoglobin 10.9 GM/DL (12.0-16.0); Immature Granulocytes % 0.8 %; Immature Granulocytes Absolute 0.04 #; Lymphocytes # 0.2 10*3/uL (1.4-4.0); Lymphocytes % 4.9 % (21.3-54.2); Mean Corpuscular HGB Conc 33.2 GM/DL (32-36); Monocytes % 3.9 % (1.7-12.7); Neutrophils % 89.8 % (38.7-73.9); Platelet Count 49 T/CUMM (130-400); Red Cell Distribution Width 18.7 % (9.3-17.3); White Blood Count 4.9 T/CUMM (4-12)
[2018-11-17 06:17] LABS: Albumin 2.6 G/DL (3.4-5.0); Bilirubin,Total 0.6 MG/DL (0.2-1.0); Calcium 8.2 MG/DL (8.5-10.1); Osmolality,Calculated 279.3 MOS/KG (273-304); Total Protein 5.5 G/DL (6.4-8.3)
[2018-11-17 07:43] LABS: Lymphocytes 2 % (20-55); Nucleated Red Blood Cells 1 (0-5); Segmented Neutrophils 98 % (50-85); Total Cells Counted 100
[2018-11-17 07:45] LABS: Elliptocytes Few; Hypochromasia 2+; Microcytosis 1+; Ovalocytes Few; Platelet Estimate Decreased; Polychromasia Few
[2018-11-17] MEDS: POTASSIUM CHLORIDE RIDER 20 MEQ in PREMIX 1 EACH IV PRN ×2 (10:16→13:16)
[2018-11-17] MEDS: FAMOTIDINE 20 MG TABLET PO SCH ×2 (10:16→20:22)
[2018-11-17] MEDS: POTASSIUM CHLORIDE RIDER 10 MEQ in PREMIX 1 EACH IV PRN (16:35)
[2018-11-18 03:12] LABS: Apearance,Urine CLOUDY (Clear); Bilirubin,Urine Negative (Negative); Blood, Urine Large mg/dL (Negative); Glucose,Urine (UA) Negative (Negative); Ketones,Urine Negative (Negative); Nitrite,Urine Negative (Negative); Protein,Urine 30 MG/DL; RBC,Urine 3 /HPF (0-4); Squamous Epithelial Cell,Urine Many /HPF (0-10); Urine Color Yellow (Yellow); Urine Specific Gravity 1.008 (1.001-1.035); Urine Urobilinogen < 2.0 EU/DL (0.2-1.0); WBC,Urine 21 /HPF (0-6)
[2018-11-18 04:36] LABS: Basophils % 0.2 % (0.0-0.8); Eosinophils % 0.4 % (0.00-10.9); Hematocrit 36.1 VOL% (35.7-47.0); Hemoglobin 11.9 GM/DL (12.0-16.0); Immature Granulocytes % 0.8 %; Immature Granulocytes Absolute 0.04 #; Lymphocytes # 0.2 10*3/uL (1.4-4.0); Lymphocytes % 4.3 % (21.3-54.2); Mean Corpuscular Volume 81.5 FL (87-102); Monocytes % 4.7 % (1.7-12.7); Neutrophils % 89.6 % (38.7-73.9); Platelet Count 80 T/CUMM (130-400); Red Blood Count 4.43 MC/CUMM (3.8-5.5); Red Cell Distribution Width 18.4 % (9.3-17.3); White Blood Count 5.1 T/CUMM (4-12)
[2018-11-18 05:07] LABS: Calcium 8.4 MG/DL (8.5-10.1); Osmolality,Calculated 276.4 MOS/KG (273-304)
[2018-11-18 05:19] LABS: Lymphocytes 4 % (20-55); Segmented Neutrophils 93 % (50-85); Total Cells Counted 100
[2018-11-18 05:20] LABS: Ovalocytes 1+; Target Cells Few
[2018-11-18 05:22] LABS: Anisocytosis Slight; Hypochromasia Slight; Microcytosis 1+; Polychromasia Slight
[2018-11-18 05:23] LABS: Platelet Estimate Decreased
[2018-11-18] MEDS: LEVOTHYROXINE 112 MCG TABLET PO SCH (06:00)
[2018-11-18] MEDS: FAMOTIDINE 20 MG TABLET PO SCH ×2 (10:48→21:56)
[2018-11-18] MEDS: cefTRIAXone 1,000 MG in SYRINGE 1 EACH IV SCH (10:48)
[2018-11-18] MEDS: DEXAMETHASONE 4 MG/1 ML VIAL IV SCH ×2 (10:49→21:57)
[2018-11-18] MEDS: amLODIPine 5 MG TABLET PO SCH (10:52)
[2018-11-19 05:08] LABS: Hematocrit 33.9 VOL% (35.7-47.0); Hemoglobin 11.5 GM/DL (12.0-16.0); Immature Granulocytes % 0.4 %; Immature Granulocytes Absolute 0.02 #; Lymphocytes # 0.2 10*3/uL (1.4-4.0); Lymphocytes % 3.8 % (21.3-54.2); Mean Corpuscular HGB Conc 33.9 GM/DL (32-36); Mean Corpuscular Volume 78.8 FL (87-102); Monocytes % 1.2 % (1.7-12.7); Neutrophils % 94.6 % (38.7-73.9); Platelet Count 106 T/CUMM (130-400); Red Cell Distribution Width 17.7 % (9.3-17.3); White Blood Count 5.2 T/CUMM (4-12)
[2018-11-19 05:30] LABS: Calcium 8.7 MG/DL (8.5-10.1); Osmolality,Calculated 274.8 MOS/KG (273-304)
[2018-11-19 05:35] LABS: Hypochromasia 1+; Lymphocytes 5 % (20-55); Microcytosis 1+; Platelet Estimate Decreased; Segmented Neutrophils 94 % (50-85); Total Cells Counted 100
[2018-11-19] MEDS: LEVOTHYROXINE 112 MCG TABLET PO SCH (06:35)
[2018-11-19] MEDS: cefTRIAXone 1,000 MG in SYRINGE 1 EACH IV SCH (06:37)
[2018-11-19] MEDS: FAMOTIDINE 20 MG TABLET PO SCH ×2 (09:47→20:58)
[2018-11-19] MEDS: DEXAMETHASONE 4 MG/1 ML VIAL IV SCH ×2 (09:47→21:50)
[2018-11-19] MEDS: amLODIPine 5 MG TABLET PO SCH (09:47)
[2018-11-20] MEDS: LEVOTHYROXINE 112 MCG TABLET PO SCH (05:47)
[2018-11-20 06:10] LABS: Basophils % 0.2 % (0.0-0.8); Hematocrit 28.8 VOL% (35.7-47.0); Hemoglobin 9.8 GM/DL (12.0-16.0); Immature Granulocytes % 0.5 %; Immature Granulocytes Absolute 0.03 #; Lymphocytes # 0.3 10*3/uL (1.4-4.0); Lymphocytes % 4.6 % (21.3-54.2); Neutrophils % 91.7 % (38.7-73.9); Platelet Count 144 T/CUMM (130-400); Red Cell Distribution Width 17.8 % (9.3-17.3); White Blood Count 5.6 T/CUMM (4-12)
[2018-11-20 06:38] LABS: Lymphocytes 6 % (20-55); Segmented Neutrophils 90 % (50-85); Total Cells Counted 100
[2018-11-20 06:39] LABS: Acanthocytes Few; Anisocytosis 1+; Ovalocytes 1+
[2018-11-20 06:40] LABS: Platelet Estimate Adequate; Target Cells Few
[2018-11-20] MEDS: DEXAMETHASONE 4 MG/1 ML VIAL IV SCH ×2 (09:32→22:16)
[2018-11-20] MEDS: FAMOTIDINE 20 MG TABLET PO SCH ×2 (09:32→21:03)
[2018-11-20] MEDS: amLODIPine 5 MG TABLET PO SCH (09:32)
[2018-11-20] MEDS: cefTRIAXone 1,000 MG in SYRINGE 1 EACH IV SCH (09:32)
[2018-11-20] MEDS: ENOXAPARIN 40 MG/0.4 ML SYRINGE SUBCUT SCH (12:47)
[2018-11-21 05:38] LABS: Hematocrit 30.9 VOL% (35.7-47.0); Hemoglobin 10.6 GM/DL (12.0-16.0); Immature Granulocytes % 0.3 %; Immature Granulocytes Absolute 0.02 #; Lymphocytes # 0.3 10*3/uL (1.4-4.0); Lymphocytes % 4.7 % (21.3-54.2); Mean Corpuscular HGB Conc 34.3 GM/DL (32-36); Mean Corpuscular Volume 79.2 FL (87-102); Mean Platelet Volume 10.7 FL (9.6-12.0); Monocytes % 4.5 % (1.7-12.7); Neutrophils % 90.5 % (38.7-73.9); Platelet Count 153 T/CUMM (130-400); Red Cell Distribution Width 17.3 % (9.3-17.3); White Blood Count 6.2 T/CUMM (4-12)
[2018-11-21 05:58] LABS: Hypochromasia 1+; Lymphocytes 4 % (20-55); Microcytosis 1+; Segmented Neutrophils 92 % (50-85); Total Cells Counted 100
[2018-11-21 05:59] LABS: Anisocytosis 1+; Ovalocytes 1+; Platelet Estimate Adequate; Tear Drop Cells Slight
[2018-11-21 06:00] LABS: Hypersegmented Neutrophil SLIGHT
[2018-11-21] MEDS: LEVOTHYROXINE 112 MCG TABLET PO SCH (06:30)
[2018-11-21 06:42] LABS: Calcium 8.6 MG/DL (8.5-10.1); Osmolality,Calculated 277.7 MOS/KG (273-304)
[2018-11-21] MEDS: POTASSIUM CHLORIDE RIDER 20 MEQ in PREMIX 1 EACH IV PRN ×2 (09:34→11:34)
[2018-11-21] MEDS: amLODIPine 5 MG TABLET PO SCH (09:35)
[2018-11-21] MEDS: cefTRIAXone 1,000 MG in SYRINGE 1 EACH IV SCH (09:35)
[2018-11-21] MEDS: FAMOTIDINE 20 MG TABLET PO SCH ×2 (09:35→20:37)
[2018-11-21] MEDS: DEXAMETHASONE 4 MG/1 ML VIAL IV SCH ×2 (09:36→23:15)
[2018-11-21] MEDS: ENOXAPARIN 40 MG/0.4 ML SYRINGE SUBCUT SCH (09:36)
[2018-11-22 05:30] LABS: Hematocrit 28.3 VOL% (35.7-47.0); Hemoglobin 9.4 GM/DL (12.0-16.0); Immature Granulocytes % 0.6 %; Immature Granulocytes Absolute 0.03 #; Lymphocytes # 0.3 10*3/uL (1.4-4.0); Lymphocytes % 6.6 % (21.3-54.2); Mean Corpuscular HGB Conc 33.2 GM/DL (32-36); Mean Corpuscular Volume 81.6 FL (87-102); Mean Platelet Volume 9.6 FL (9.6-12.0); Neutrophils % 86.8 % (38.7-73.9); Platelet Count 135 T/CUMM (130-400); Red Blood Count 3.47 MC/CUMM (3.8-5.5); Red Cell Distribution Width 17.5 % (9.3-17.3); White Blood Count 4.8 T/CUMM (4-12)
[2018-11-22 05:42] LABS: Calcium 8.4 MG/DL (8.5-10.1); Osmolality,Calculated 285.1 MOS/KG (273-304)
[2018-11-22] MEDS: LEVOTHYROXINE 112 MCG TABLET PO SCH (06:15)
[2018-11-22] MEDS: amLODIPine 5 MG TABLET PO SCH (08:30)
[2018-11-22] MEDS: FAMOTIDINE 20 MG TABLET PO SCH ×2 (08:30→21:27)
[2018-11-22] MEDS: BISACODYL 5 MG TABLET PO PRN (08:30)
[2018-11-22] MEDS: POTASSIUM CHLORIDE RIDER 20 MEQ in PREMIX 1 EACH IV PRN ×2 (08:30→10:30)
[2018-11-22] MEDS: POTASSIUM CHLORIDE 20 MEQ TABLET PO SCH (08:30)
[2018-11-22] MEDS: cefTRIAXone 1,000 MG in SYRINGE 1 EACH IV SCH (08:44)
[2018-11-22] MEDS: DEXAMETHASONE 4 MG/1 ML VIAL IV SCH ×2 (11:10→21:31)
[2018-11-22] MEDS: ENOXAPARIN 40 MG/0.4 ML SYRINGE SUBCUT SCH (11:10)
[2018-11-23 04:31] LABS: Hematocrit 33.1 VOL% (35.7-47.0); Hemoglobin 11.1 GM/DL (12.0-16.0); Immature Granulocytes % 0.4 %; Immature Granulocytes Absolute 0.02 #; Lymphocytes # 0.4 10*3/uL (1.4-4.0); Lymphocytes % 7.4 % (21.3-54.2); Mean Corpuscular HGB Conc 33.5 GM/DL (32-36); Mean Corpuscular Volume 80.5 FL (87-102); Mean Platelet Volume 9.8 FL (9.6-12.0); Monocytes % 4.1 % (1.7-12.7); Neutrophils % 88.1 % (38.7-73.9); Platelet Count 188 T/CUMM (130-400); Red Blood Count 4.11 MC/CUMM (3.8-5.5); Red Cell Distribution Width 17.4 % (9.3-17.3); White Blood Count 5.4 T/CUMM (4-12)
[2018-11-23 04:58] LABS: Osmolality,Calculated 283.3 MOS/KG (273-304)
[2018-11-23] MEDS: LEVOTHYROXINE 112 MCG TABLET PO SCH (05:41)
[2018-11-23] MEDS: POTASSIUM CHLORIDE 20 MEQ TABLET PO SCH (09:33)
[2018-11-23] MEDS: cefTRIAXone 1,000 MG in SYRINGE 1 EACH IV SCH (09:33)
[2018-11-23] MEDS: DEXAMETHASONE 4 MG/1 ML VIAL IV SCH ×2 (09:33→21:32)
[2018-11-23] MEDS: ENOXAPARIN 40 MG/0.4 ML SYRINGE SUBCUT SCH (09:33)
[2018-11-23] MEDS: amLODIPine 5 MG TABLET PO SCH (09:33)
[2018-11-23] MEDS: FAMOTIDINE 20 MG TABLET PO SCH ×2 (09:33→21:31)
[2018-11-24 05:07] LABS: Hematocrit 28.3 VOL% (35.7-47.0); Hemoglobin 9.4 GM/DL (12.0-16.0); Immature Granulocytes % 0.7 %; Immature Granulocytes Absolute 0.03 #; Lymphocytes # 0.4 10*3/uL (1.4-4.0); Lymphocytes % 8.2 % (21.3-54.2); Mean Corpuscular HGB Conc 33.2 GM/DL (32-36); Mean Corpuscular Volume 80.9 FL (87-102); Mean Platelet Volume 10.1 FL (9.6-12.0); Monocytes % 6.5 % (1.7-12.7); Neutrophils % 84.6 % (38.7-73.9); Platelet Count 187 T/CUMM (130-400); Red Cell Distribution Width 17.2 % (9.3-17.3); White Blood Count 4.3 T/CUMM (4-12)
[2018-11-24 05:33] LABS: Calcium 8.5 MG/DL (8.5-10.1)
[2018-11-24] MEDS: LEVOTHYROXINE 112 MCG TABLET PO SCH (05:38)
[2018-11-24] MEDS: POTASSIUM CHLORIDE RIDER 20 MEQ in PREMIX 1 EACH IV PRN ×2 (06:07→08:37)
[2018-11-24] MEDS: cefTRIAXone 1,000 MG in SYRINGE 1 EACH IV SCH (08:36)
[2018-11-24] MEDS: FAMOTIDINE 20 MG TABLET PO SCH ×2 (08:37→21:05)
[2018-11-24] MEDS: POTASSIUM CHLORIDE 20 MEQ TABLET PO SCH (08:37)
[2018-11-24] MEDS: amLODIPine 5 MG TABLET PO SCH (08:37)
[2018-11-24] MEDS: ENOXAPARIN 40 MG/0.4 ML SYRINGE SUBCUT SCH (10:12)
[2018-11-24] MEDS: DEXAMETHASONE 4 MG/1 ML VIAL IV SCH ×2 (10:12→21:39)
[2018-11-25 04:32] LABS: Hematocrit 28.3 VOL% (35.7-47.0); Hemoglobin 9.6 GM/DL (12.0-16.0); Immature Granulocytes % 0.6 %; Immature Granulocytes Absolute 0.02 #; Lymphocytes # 0.3 10*3/uL (1.4-4.0); Lymphocytes % 7.9 % (21.3-54.2); Mean Corpuscular HGB Conc 33.9 GM/DL (32-36); Mean Corpuscular Volume 79.7 FL (87-102); Mean Platelet Volume 11.9 FL (9.6-12.0); Monocytes % 6.7 % (1.7-12.7); Neutrophils % 84.8 % (38.7-73.9); Platelet Count 217 T/CUMM (130-400); Red Blood Count 3.55 MC/CUMM (3.8-5.5); Red Cell Distribution Width 17.2 % (9.3-17.3); White Blood Count 3.4 T/CUMM (4-12)
[2018-11-25 04:46] LABS: Calcium 8.2 MG/DL (8.5-10.1); Osmolality,Calculated 276.5 MOS/KG (273-304)
[2018-11-25] MEDS: LEVOTHYROXINE 112 MCG TABLET PO SCH (05:53)
[2018-11-25] MEDS: cefTRIAXone 1,000 MG in SYRINGE 1 EACH IV SCH (08:45)
[2018-11-25] MEDS: FAMOTIDINE 20 MG TABLET PO SCH ×2 (08:45→21:49)
[2018-11-25] MEDS: POTASSIUM CHLORIDE 20 MEQ TABLET PO SCH (08:45)
[2018-11-25] MEDS: amLODIPine 5 MG TABLET PO SCH (08:45)
[2018-11-25] MEDS: ENOXAPARIN 40 MG/0.4 ML SYRINGE SUBCUT SCH (09:03)
[2018-11-25] MEDS: DEXAMETHASONE 4 MG/1 ML VIAL IV SCH ×2 (10:58→21:49)
[2018-11-25] MEDS: ACETAMINOPHEN 325 MG TABLET PO PRN (17:40)
[2018-11-26 04:50] LABS: Hematocrit 30.8 VOL% (35.7-47.0); Hemoglobin 10.3 GM/DL (12.0-16.0); Immature Granulocytes % 1.3 %; Immature Granulocytes Absolute 0.05 #; Lymphocytes # 0.4 10*3/uL (1.4-4.0); Lymphocytes % 10.6 % (21.3-54.2); Mean Corpuscular HGB Conc 33.4 GM/DL (32-36); Mean Corpuscular Volume 80.8 FL (87-102); Mean Platelet Volume 10.1 FL (9.6-12.0); Monocytes % 5.3 % (1.7-12.7); Neutrophils % 82.8 % (38.7-73.9); Platelet Count 211 T/CUMM (130-400); Red Blood Count 3.81 MC/CUMM (3.8-5.5); Red Cell Distribution Width 17.3 % (9.3-17.3); White Blood Count 3.8 T/CUMM (4-12)
[2018-11-26 04:59] LABS: Calcium 8.8 MG/DL (8.5-10.1); Osmolality,Calculated 279.4 MOS/KG (273-304)
[2018-11-26] MEDS: LEVOTHYROXINE 112 MCG TABLET PO SCH (05:59)
[2018-11-26] MEDS: POTASSIUM CHLORIDE RIDER 20 MEQ in PREMIX 1 EACH IV PRN ×2 (11:03→13:03)
[2018-11-26] MEDS: ENOXAPARIN 40 MG/0.4 ML SYRINGE SUBCUT SCH (11:03)
[2018-11-26] MEDS: DEXAMETHASONE 4 MG/1 ML VIAL IV SCH ×2 (11:03→21:43)
[2018-11-26] MEDS: amLODIPine 5 MG TABLET PO SCH (11:04)
[2018-11-26] MEDS: POTASSIUM CHLORIDE 20 MEQ TABLET PO SCH (11:04)
[2018-11-26] MEDS: FAMOTIDINE 20 MG TABLET PO SCH ×2 (11:04→21:42)
[2018-11-27] MEDS: LEVOTHYROXINE 112 MCG TABLET PO SCH (06:37)
[2018-11-27] MEDS ORDERED: TUBERCULIN SKIN TEST 0.1 ML SYRINGE INTRADERM ONE (08:01)
[2018-11-27] MEDS: POTASSIUM CHLORIDE 20 MEQ TABLET PO SCH (08:42)
[2018-11-27] MEDS: FAMOTIDINE 20 MG TABLET PO SCH ×2 (08:43→22:15)
[2018-11-27] MEDS: amLODIPine 5 MG TABLET PO SCH (08:43)
[2018-11-27] MEDS: DEXAMETHASONE 4 MG/1 ML VIAL IV SCH ×2 (10:03→22:17)
[2018-11-27] MEDS: ENOXAPARIN 40 MG/0.4 ML SYRINGE SUBCUT SCH (10:03)
[2018-11-28] MEDS: LEVOTHYROXINE 112 MCG TABLET PO SCH (06:22)
[2018-11-28] MEDS: amLODIPine 5 MG TABLET PO SCH (08:56)
[2018-11-28] MEDS: POTASSIUM CHLORIDE 20 MEQ TABLET PO SCH (08:56)
[2018-11-28] MEDS: POTASSIUM CHLORIDE RIDER 20 MEQ in PREMIX 1 EACH IV PRN ×2 (08:56→11:41)
[2018-11-28] MEDS: FAMOTIDINE 20 MG TABLET PO SCH ×2 (08:57→20:55)
[2018-11-28] MEDS: ENOXAPARIN 40 MG/0.4 ML SYRINGE SUBCUT SCH (09:00)
[2018-11-28] MEDS: DEXAMETHASONE 4 MG/1 ML VIAL IV SCH ×2 (10:52→23:34)
[2018-11-28] MEDS: ACETAMINOPHEN 325 MG TABLET PO PRN (11:41)
[2018-11-29] MEDS: LEVOTHYROXINE 112 MCG TABLET PO SCH (06:44)
[2018-11-29] MEDS: POTASSIUM CHLORIDE 20 MEQ TABLET PO SCH (09:22)
[2018-11-29] MEDS: ENOXAPARIN 40 MG/0.4 ML SYRINGE SUBCUT SCH (09:22)
[2018-11-29] MEDS: amLODIPine 5 MG TABLET PO SCH (09:22)
[2018-11-29] MEDS: FAMOTIDINE 20 MG TABLET PO SCH (09:22)
[2018-11-29] MEDS: DEXAMETHASONE 4 MG/1 ML VIAL IV SCH (09:33)
[2018-11-29] MEDS ORDERED: HEPARIN LOCK FLUSH 500 UNIT/5 ML SYRINGE IV ONE (11:34)
[2018-11-29 14:08] VITALS: BP 120/79
[2018-11-30] MEDS ORDERED: DEXAMETHASONE 4 MG/1 ML VIAL IV SCH (09:00)
== END 2018-11-29 13:35 | DRG 422 ==
LOC: N.ED 19:32 → N.EDINP 19:32 → SUATTDRO 11-04 01:00 → N.4E 11-04 02:56 → SUATTDRO 11-05 14:30
PROVIDERS: ADMIT Internal Medicine; ATTEND Emergency Medicine